=== PATIENT | male | born 1945 | race Two or more races ===

== ENCOUNTER → 2018-01-28 | Outpatient (CLI) | payer OTHER, MEDICARE | LOC: CIMAGING 16:21 | PROVIDERS: ATTEND Internal Medicine | DX: R05 Cough (principal); J44.9 Chronic obstructive pulmonary disease, unspecified | CPT/HCPCS: 71046-PO ==

== ENCOUNTER 2018-03-19 09:56 | Emergency (ER) | payer OTHER, MEDICARE ==
[2018-03-19 10:28] LABS: PLATELET COUNT 202 10^3/uL (150-400)
--- NOTE | 2018-03-19 10:33 | EDPHY ---
HPI/HX/ROS/PE/MDM Narrative: CHIEF COMPLAINT: Syncope, right flank injury HPI: The patient is a 72-year-old male with a history of Parkinson's disease and history of frequent syncopal episodes related to Parkinson's medication and low blood pressure. Last night he got up from sleep to use the restroom and shortly after urinating collapsed to the floor. He struck his right chest wall on a trash bin. He states that this type of a syncopal episode is very normal for him. His primary concern is the pain he is having in his right flank. He states that this pain is present only with certain motions. He denies abdominal pain or shortness of breath. He has been in his usual state of health. REVIEW OF SYSTEMS: Aside from elements discussed in the HPI, a comprehensive 10-point review of systems was reviewed and is negative. PMH: Includes Parkinson's disease, history of multiple syncopal episodes. Takes a daily aspirin, otherwise no anticoagulant use. 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 . PHYSICAL EXAM: General:Patient is alert, in no acute distress. ENT:Eyes are normal to inspection. ENT inspection normal. Neck: Normal inspection. Full range of motion. Respiratory:No respiratory distress. Breath sounds normal bilaterally. Tenderness to palpation is present on the right lower chest wall. No ecchymosis or deformity. Cardiovascular: Regular rate and rhythm. Strong peripheral pulses. Normal cap refill. Abdomen:The abdomen is nontender to palpation. There are no peritoneal signs. There are normal bowel sounds. Back: Normal to inspection. No tenderness to palpation. Skin: Normal color. No rash. Warm and dry. Extremities: Normal appearance. Full range of motion. Neuro: Oriented x3. Normal motor function. Normal sensory function. MDM: This patient presents with what sounds like a fairly routine syncopal event, complicated by rib pain secondary to three hairline rib fractures. There are no signs of PTx, liver injury, or other trauma. Patient is comfortable and would like to go home. There are no signs of ACS or arrhyhtmia. - Data Points Imaging Results: Imaging Impressions Ribs w/Chest X-Ray 03/19/18 10:14 Impression: Clear lungs. No acute rib fracture, pneumothorax or effusion. Chest CT 03/19/18 11:04 Impression: 1. Cortical irregularity of the right anterolateral 10th through 12th ribs, suspicious for fractures. Correlate with point tenderness. There is also subtle cortical irregularity lateral right third rib. 2. Pleural-based 4.3 mm right middle lobe nodule is likely benign. If patient is at increased risk, could consider 12 month follow-up. 3. Hypodense lesion in the right hepatic lobe measures 2.9 cm and probably represents a cyst. Findings and recommendations discussed with Alan Lopez MD at 1158 hour, 03/19/2018. Imaging: Discussed imaging studies w/ machine scallop cutter Radiologist, I viewed and interpreted images myself Laboratory Results: Laboratory Results 03/19/18 10:20 03/19/18 10:20 03/19/18 03/19/18 03/19/18 10:23 10:20 10:20 WBC 5.97 10^3/uL 10^3/uL (3.80-9.50) RBC 4.72 10^6/uL 10^6/uL (4.40-6.38) Hgb 14.2 g/dL g/dL (13.7-17.5) Hct 41.6 % % (40.0-51.0) MCV 88.1 fL fL (81.5-99.8) MCH 30.1 pg pg (27.9-34.1) MCHC 34.1 g/dL g/dL (32.4-36.7) RDW 12.4 % % (11.5-15.2) Plt Count 202 10^3/uL 10^3/uL (150-400) MPV 9.1 fL fL (8.7-11.7) Neut % (Auto) 67.8 % % (39.3-74.2) Lymph % (Auto) 20.9 % % (15.0-45.0) [place] % (Auto) 9.2 % % (4.5-13.0) Eos % (Auto) 1.2 % % (0.6-7.6) Baso % (Auto) 0.7 % % (0.3-1.7) Nucleat RBC Rel Count 0.0 % % (0.0-0.2) Absolute Neuts (auto) 4.05 10^3/uL 10^3/uL (1.70-6.50) Absolute Lymphs (auto) 1.25 10^3/uL 10^3/uL (1.00-3.00) Absolute Monos (auto) 0.55 10^3/uL 10^3/uL (0.30-0.80) Absolute Eos (auto) 0.07 10^3/uL 10^3/uL (0.03-0.40) Absolute Basos (auto) 0.04 10^3/uL 10^3/uL (0.02-0.10) Absolute Nucleated RBC 0.00 10^3/uL 10^3/uL (0-0.01) Immature Gran % 0.2 % % (0.0-1.1) Immature Gran # 0.01 10^3/uL 10^3/uL (0.00-0.10) Sodium 142 mEq/L mEq/L (135-145) Potassium 3.3 mEq/L mEq/L (3.3-5.0) Chloride 104 mEq/L mEq/L (97-110) Carbon Dioxide 28 mEq/l mEq/l (22-31) Anion Gap 10 mEq/L mEq/L (8-16) BUN 18 mg/dL mg/dL (7-23) Creatinine 0.9 mg/dL mg/dL (0.7-1.3) Estimated GFR > 60 Glucose 127 mg/dL H mg/dL (70-100) Calcium 9.0 mg/dL mg/dL (8.5-10.4) POC Troponin I 0.01 ng/mL ng/mL (0.00-0.08) Point of Care Test Results: Chemistry 03/19/18 10:23 POC Troponin I 0.01 ng/mL ng/mL (0.00-0.08) General Time Seen by Provider: 03/19/18 10:11 Initial Vital Signs: Initial Vital Signs Temperature (C) 36.8 C 03/19/18 10:02 Heart Rate 67 03/19/18 10:02 Respiratory Rate 18 03/19/18 10:02 Blood Pressure 120/75 03/19/18 10:02 O2 Sat (%) 98 03/19/18 10:02 O2 Delivery Mode Room Air Allergies/Adverse Reactions: phenytoin [From Dilantin] Allergy (Verified 03/19/18 10:00) Home Medications: Medication Instructions Recorded Crestor 03/19/18 Donepezil HCl 03/19/18 FLUDROCORTISONE ACETATE 03/19/18 Hydrocodone/APAP 5/325 [[place] 0.5 tab PO Q6H PRN #15 tab 03/19/18 5/325 (*)] Midodrine HCl 03/19/18 Modafinil 03/19/18 Rasagiline Mesylate 03/19/18 Rytary ER 61.25 mg-245 mg Cap 03/19/18 Departure - Departure Disposition: Home, Routine, Self-Care Clinical Impression: Syncope Qualifiers: Encounter type: initial encounter Ribs, multiple fractures Qualifiers: Encounter type: initial encounter Fracture type: closed Laterality: right Qualified Code(s): S22.41XA - Multiple fractures of ribs, right side, initial encounter for closed fracture Condition: Good Instructions: Rib Fracture (ED) Additional Instructions: Followup with your primary doctor within 72 hours for reevaluation. Use incentive spirometer as directed several times daily. Return to the emergency department for fever, worsening pain, shortness of breath or difficulty breathing, abdominal pain, blood in urine or other concerns. Referrals: Micah Vail MD [Primary Care Provider] - As per Instructions Prescriptions: Hydrocodone/APAP 5/325 [[place] 5/325 (*)] 0.5 tab PO Q6H PRN #15 tab PRN Reason: Pain, Severe
[2018-03-19] MEDS ORDERED: IOPAMIDOL (ISOVUE-300) 100 ML BTL ONE (11:15)
[2018-03-19 12:34] VITALS: BP 155/86
--- NOTE | 2018-03-19 14:46 | CPEKG ---
Test Reason : OPEN Blood Pressure : / mmHG Vent. Rate : 069 BPM Atrial Rate : 069 BPM P-R Int : 155 ms QRS Dur : 104 ms QT Int : 543 ms P-R-T Axes : 065 -26 233 degrees QTc Int : 582 ms Sinus rhythm Probable left atrial enlargement Abnormal R-wave progression, early transition LVH with secondary repolarization abnormality Prolonged QT interval Confirmed by Alan Lopez ([id number]) on 03/19/2018 2:45:48 PM Referred By: Confirmed By:Alan Lopez
== END 2018-03-19 12:34 | disposition home or self-care (01) ==
DX: S22.41XA Multiple fractures of ribs, right side, initial encounter for closed fracture (principal); R55 Syncope and collapse; G20 Parkinson's disease; W01.198A Fall on same level from slipping, tripping and stumbling with subsequent striking against other object, initial encounter
CPT/HCPCS: 71101; 71260; 93005; 99285; Q9967; 84484-PO

== ENCOUNTER 2018-08-02 15:33 | Inpatient (IN) | payer OTHER, MEDICARE ==
[2018-08-02] MEDS ORDERED: NS 1,000 ML IV ONE (15:54)
--- NOTE | 2018-08-02 15:54 | EDPHY ---
H & P Time Seen by Provider: 08/02/18 15:53 HPI/ROS: CHIEF COMPLAINT: Orthostatic hypotension HISTORY OF PRESENT ILLNESS: The patient is referred to the emergency department by his neurologist Dr. Charli Hernandez for admission. The patient is struggling with uncontrolled orthostatic hypotension. The patient has a history of Parkinson's disease. He is on a number of medications including midodrine and is still having significant orthostasis. The patient denies any fever, cough or congestion. He denies dysuria. He reports his symptoms of Parkinson's disease have been relatively stable. The patient's symptoms of orthostatic hypotension at become acutely worse over the past 2 weeks. The patient did increase his midodrine dose without improvement. The patient's family report that he requires near constant assistance with any positional changes. REVIEW OF SYSTEMS: A comprehensive 10 point review of systems is otherwise negative aside from elements mentioned in the history of present illness. Source: Patient Exam Limitations: No limitations - Medical/Surgical History Hx Asthma: No Hx Chronic Respiratory Disease: No Hx Diabetes: No Hx Cardiac Disease: No Hx Renal Disease: No Hx Cirrhosis: No Hx Alcoholism: No Hx HIV/AIDS: No Hx Splenectomy or Spleen Trauma: No Other PMH: orthostatic hypotension. hyperlipidemia. 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 - Social History Smoking Status: Never smoked - Physical Exam Exam: General Appearance: Alert, no distress Eyes: Pupils equal and round no pallor or injection ENT, Mouth: Dry mucous membranes Respiratory: There are no retractions, lungs are clear to auscultation Cardiovascular: Regular rate and rhythm Gastrointestinal: Abdomen is soft and nontender, no masses, bowel sounds normal Neurological: Alert and oriented x4, no gross motor deficits appreciated Skin: Warm and dry, no rashes Musculoskeletal: Neck is supple nontender Extremities: symmetrical, full range of motion Constitutional: Initial Vital Signs Temperature (C) 36.4 C 08/02/18 15:51 Heart Rate 91 08/02/18 15:51 Respiratory Rate 18 08/02/18 15:51 Blood Pressure 124/85 H 08/02/18 15:51 O2 Sat (%) 95 08/02/18 15:51 O2 Delivery Mode Room Air Allergies/Adverse Reactions: phenytoin [From Dilantin] Allergy (Verified 08/02/18 15:49) Home Medications: Medication Instructions Recorded Crestor 03/19/18 Donepezil HCl 03/19/18 FLUDROCORTISONE ACETATE 03/19/18 Hydrocodone/APAP 5/325 [[place] 0.5 tab PO Q6H PRN #15 tab 03/19/18 5/325 (*)] Midodrine HCl 03/19/18 Modafinil 03/19/18 Rasagiline Mesylate 03/19/18 Rytary ER 61.25 mg-245 mg Cap 03/19/18 Medical Decision Making - Diagnostics EKG Interpretation: EKG: Complete interpretation has been separately recorded in the [facility] archive. Summary impression: Sinus rhythm, LVH, nonspecific ST T wave changes noted ED Course/Re-evaluation: The patient presents to the ED with market increase in symptoms of orthostatic hypotension over the past 2 weeks. The patient is hemodynamically stable upon arrival. His EKG demonstrates a sinus rhythm. A patient's neurologist Dr. Hernandez has requested admission to the hospital. Consultation is made with Dr. Woodson from the hospitalist service at 4:30 p.m.. The patient will be admitted to the hospital for further evaluation and management of his symptomatic orthostasis. Differential Diagnosis: Differential diagnosis considered includes dehydration, anemia, worsening orthostatic hypotension, medication side effect, urinary tract infection - Data Points Laboratory Results: Laboratory Results 08/02/18 16:17 08/02/18 16:17 08/02/18 08/02/18 16:17 16:17 WBC 5.39 10^3/uL 10^3/uL (3.80-9.50) RBC 4.24 10^6/uL L 10^6/uL (4.40-6.38) Hgb 13.1 g/dL L g/dL (13.7-17.5) Hct 38.1 % L % (40.0-51.0) MCV 89.9 fL fL (81.5-99.8) MCH 30.9 pg pg (27.9-34.1) MCHC 34.4 g/dL g/dL (32.4-36.7) RDW 13.3 % % (11.5-15.2) Plt Count 195 10^3/uL 10^3/uL (150-400) MPV 9.3 fL fL (8.7-11.7) Neut % (Auto) 49.9 % % (39.3-74.2) Lymph % (Auto) 33.4 % % (15.0-45.0) [place] % (Auto) 13.0 % % (4.5-13.0) Eos % (Auto) 2.8 % % (0.6-7.6) Baso % (Auto) 0.7 % % (0.3-1.7) Nucleat RBC Rel Count 0.0 % % (0.0-0.2) Absolute Neuts (auto) 2.69 10^3/uL 10^3/uL (1.70-6.50) Absolute Lymphs (auto) 1.80 10^3/uL 10^3/uL (1.00-3.00) Absolute Monos (auto) 0.70 10^3/uL 10^3/uL (0.30-0.80) Absolute Eos (auto) 0.15 10^3/uL 10^3/uL (0.03-0.40) Absolute Basos (auto) 0.04 10^3/uL 10^3/uL (0.02-0.10) Absolute Nucleated RBC 0.00 10^3/uL 10^3/uL (0-0.01) Immature Gran % 0.2 % % (0.0-1.1) Immature Gran # 0.01 10^3/uL 10^3/uL (0.00-0.10) Sodium 141 mEq/L mEq/L (135-145) Potassium 4.1 mEq/L mEq/L (3.5-5.2) Chloride 106 mEq/L mEq/L (97-110) Carbon Dioxide 29 mEq/l mEq/l (22-31) Anion Gap 6 mEq/L mEq/L (6-14) BUN 20 mg/dL mg/dL (7-23) Creatinine 0.9 mg/dL mg/dL (0.7-1.3) Estimated GFR > 60 Glucose 94 mg/dL mg/dL (70-100) Calcium 9.2 mg/dL mg/dL (8.5-10.4) Medications Given: Discontinued Medications Sodium Chloride (Ns) 1,000 mls @ 0 mls/hr IV EDNOW ONE; Wide Open PRN Reason: Protocol Stop: 08/02/18 15:55 Last Admin: 08/02/18 16:40 Dose: 1,000 mls Departure - Departure Disposition: [facility] Inpatient Acute Clinical Impression: Parkinsons disease, Orthostatic hypotension Condition: Fair
[2018-08-02 16:27] LABS: PLATELET COUNT 195 10^3/uL (150-400)
[2018-08-02] MEDS ORDERED: ZOLPIDEM TARTRATE 5 MG TAB PO PRN (17:42)
[2018-08-02] MEDS ORDERED: ONDANSETRON 4 MG/2 ML VIAL IVP PRN (17:42)
[2018-08-02] MEDS ORDERED: ACETAMINOPHEN 325 MG TAB PO PRN (17:42)
[2018-08-02] MEDS ORDERED: NS 1,000 ML IV SCH (17:45)
--- NOTE | 2018-08-02 17:50 | PDGENHP ---
History and Physical History and Physical: CC: Worsening orthostasis HISTORY:This patient has chronic Parkinsons disease and chronic orthostatic hypotension issues related to that. Talking to him and his family, it is hard to determine the pace of change but they describe that over the past two weeks he has gone from active with walking and being able to stand from prolonged times to requent collapses and a syncope in the last two weeks. Notably however , he reports seeing a specialist in [place] regarding his orthostasis a month ago in order to try to determine why it is getting worse. He does describe some episodes of collapsing in the past, and states he had a tilt table test 6 yrs ago where his BP dropped 65 points. He denies any injury from falls. He does not note any new focal weakness, nor any dramatic change in his chronic generallized weakness/deconditioning. He has tried increasing midodrine from 5 mg bid to 10 mg tid with no benefit. He has had no other recent med changes. He does not use alcohol. He denies any chest pain or palpitations No headache no other new focal neurologic sxs no fever no nausea, vomiting or decrease in po intake no noted wt loss ROS: A comprehensive 10 system review revealed no other significant findings PAST MEDICAL HISTORY: Advanced Parkinson's disease Severe orthostasis due to Parkinson's disease Neurogenic bladder to Parkinson's disease Vocal cord dysfunction due to Parkinson's High fall risk Cognitive dysfunction FAMILY MEDICAL HISTORY: Nothing notable per the family SOCIAL HISTORY: [place] [place] No tobacco MEDICATIONS: The patients list has been reconciled by our clinical pharmacist in the EMR. I have reviewed the list and ordered appropriate medicines. PHYSICAL EXAMINATION: Vital Signs: Quite hypertensive here in the ER otherwise stable Headliner Installer: Examination: General/Neurologic: alert, oriented, good overall mentation for general history and exam but some mild memory issue noted, normal speech/language, normal oim consultant, no focal weakness, mild tremor, fairly flat facial expression Skin: warm, dry, good color, no rash HEENT: normal Neck: no mass or jvd Resps: relaxed Lungs: clear breath sounds Heart: regular, 1/ systolic murmur Abdomen: soft, nondistended, nontender, +BS, no mass Upper Extremities: normal Lower Extremities: no edema, warm No Bleeding or bruising IV site: looks normal LABORATORY DATA: Unremarkable CBC, basic met panel, UA 12 LEAD EKG: I reviewed tracing from study done in the ER today, sinus rhythm in normal range , with LVH and repolarization abnormality associated with that, no other acute or concerning findings ASSESSMENT: * Worsening orthostasis with recent syncopal spell and several episodes of collapse, in the setting of severe chronic Parkinson's a related orthostasis * Syncope * Advanced Parkinson's disease * Cognitive disorder related to Parkinson's disease * Neurogenic bladder requiring intermittent bladder catheterization at home The cause for his worsening troubles is unclear. It could be that this is worsening Parkinson's autonomic disorder. Would also be concerned about a cardiac dysfunction including either arrhythmia or structural, pulmonary hypertension from either sleep apnea or other causes, carotid or other cerebral vascular disease, hypothyroidism, adrenal dysfunction, or other non neurologic abnormalities. Additionally it might be easy for a new neurologic abnormality to be masked by his Parkinson's disease though by his symptoms and exam nothing is immediately obvious. PLANS: * Inpatient admission due to unsafe condition at home, will need at least 48 hr to problem solving trying make some progress in managing this, may need sniff or wheelchair with home care * Will hydrate him with IV fluids to see if this makes any difference though there is no obvious dehydration * Cortrosyn stim test * Check TSH * Urine drug screen to check for marijuana products (I did not discuss this with the patient at the time as his family was at the bedside with him) * Echocardiogram * Carotid Doppler studies * Neurology consult to look for any new neurologic issues or any changes in how his Parkinson's could be managed * Fall risk precautions which I have discussed with the nursing staff in detail in place specific orders for * PT and OT consult I have reviewed the patient's case in detail with Dr. Aquilino Brennan I have reviewed the patient's past medical records as part of this assessment, including previous outpatient clinical records from primary care and Neurology clinics
--- NOTE | 2018-08-02 20:14 | CPEKG ---
Test Reason : OPEN Blood Pressure : / mmHG Vent. Rate : 080 BPM Atrial Rate : 080 BPM P-R Int : 153 ms QRS Dur : 099 ms QT Int : 457 ms P-R-T Axes : 054 -25 -66 degrees QTc Int : 528 ms Sinus rhythm LVH with secondary repolarization abnormality Prolonged QT interval Confirmed by Brenden Brennan ([id number]) on 08/02/2018 8:13:41 PM Referred By: Confirmed By:Brenden Brennan
[2018-08-02] MEDS ORDERED: DONEPEZIL HCL 5 MG TAB PO SCH (21:00)
[2018-08-02] MEDS: MELATONIN 3 MG TAB PO SCH (21:26)
[2018-08-02] MEDS: FLUDROCORTISONE ACETATE 0.1 MG TAB PO SCH (21:36)
[2018-08-02] MEDS: GLYCOPYRROLATE 1 MG TAB PO SCH (21:36)
[2018-08-02] MEDS: SODIUM CHLORIDE 1,000 MG TAB PO SCH (21:36)
[2018-08-02] MEDS: LEVODOPA PO SCH (21:40)
[2018-08-02] MEDS: CARBIDOPA PO SCH (21:40)
[2018-08-03] MEDS ORDERED: COSYNTROPIN 0.25 MG/2 ML SYRINGE IVP ONE (06:00)
[2018-08-03] MEDS: ENOXAPARIN 40 MG/0.4 ML SYR SC SCH (09:37)
[2018-08-03] MEDS: FLUDROCORTISONE ACETATE 0.1 MG TAB PO SCH ×2 (09:37→22:01)
[2018-08-03] MEDS: SODIUM CHLORIDE 1,000 MG TAB PO SCH ×2 (09:38→22:01)
[2018-08-03] MEDS: MIDODRINE HCL 5 MG TAB PO SCH ×3 (09:38→16:54)
--- NOTE | 2018-08-03 09:57 | PDMN ---
Medical Necessity Medical [place] [facility] [place] A-1day: 72 yo presents w/ worsening orthostasis with recent syncopal spell and several episodes of collapse, unknown etiology - consider cardiac, pulm HTN, hypothyroid, adrenal dysfx, carotid or cerebral vasc disease, or new neuro issue masked by Parkinson's. Inpatient admission due to unsafe condition at home, will need at least 48 hr to problem solving trying make some progress in managing this. Monitor and tx w hydration, serial labs, echo, carotid Doppler studies, neuro consult, PT/OT consults. Advanced Parkinson's w/ severe orthostasis, neurogenic bladder, vocal cord dysfuntion, high fall risk, cognitive dysfunction.
[2018-08-03] MEDS: GLYCOPYRROLATE 1 MG TAB PO SCH ×2 (09:59→22:01)
[2018-08-03] MEDS: LEVODOPA PO SCH ×2 (10:00→22:33)
[2018-08-03] MEDS: ROSUVASTATIN CALCIUM 20 MG TAB PO SCH ×2 (10:00→22:01)
[2018-08-03] MEDS: CARBIDOPA PO SCH ×2 (10:00→22:33)
[2018-08-03] MEDS: Rasagiline Mesylate [Azilect] 1 MG PO SCH (10:00)
--- NOTE | 2018-08-03 10:53 | GCON ---
NEUROLOGY CONSULT REFERRING PHYSICIAN: Dr. Woodson CHIEF COMPLAINT: Parkinson disease and autonomic dysfunction. OUTPATIENT NEUROLOGIST: Dr. Charli Hernandez. 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 He has a longstanding history of Parkinson disease with autonomic dysfunction, including orthostasis. It has been managed by Cezar mosher, and he was fairly functional, with some episodes of lightheadedness, but able to ambulate and socialize, etc. The patient moved here from [place] to [place] just 3 weeks ago. Then, in the last 2 weeks, he has had increased orthostasis with becoming profoundly lightheaded and tremulous from going from a sitting to standing position, to the point where he is unable to ambulate normally and be independent at home with his . They called Dr. Hernandez, who sent him to the emergency department. Dr. Hernandez was recommending discontinuation of Aricept and hydration to stabilize the patient. He has received IV fluids and is improving now. There were no other changes in his medications or general medical condition prior to the exacerbation of his orthostasis. Six days ago, his midodrine was increased from 5 to 10 mg t.i.d., but then he stopped his midodrine completely. REVIEW OF SYSTEMS: Ten-point review of systems was done, only pertinent to the HPI. For past medical history, social history, family history, home medications, allergies, see Dr. Woodson's H and P. PHYSICAL EXAM: VITAL SIGNS: Blood pressure 163/88, temperature 36.6, respirations 14-18, heart rate 70s. GENERAL: The patient is awake and alert, in no acute distress. NEUROLOGIC: On higher mental function, he has no overt cognitive dysfunction and has no aphasia. Cranial nerve exam: Facial expression is minimally suppressed. Extraocular movements are full. On motor exam, there were no convulsive movements noted. He was having orthostatic blood pressures taken, and therefore, exam is limited. No obvious tremor at rest. IMPRESSION/PLAN: 1. Parkinson disease. 2. Autonomic dysfunction secondary to Parkinson disease. Overall, I suspect the patient's exacerbation of orthostatic symptoms is related to dehydration from him moving to [place] from [place]. His also endorses that he was not drinking enough fluids, concurrently with his decline. Going forward, I recommend we discontinue Aricept. We can reintroduce midodrine at 5 mg 3 times daily. We will not change any other of his Parkinson's medications now. Finally, continuation of IV hydration during his workup is recommended. Therapies are working with him now for discharge planning for safety. He may need to go to a group home facility versus inpatient rehab versus home with home care depending on how he does here over the next day or 2. Finally, he does have an outpatient consultation with a movement subspecialist and can get further recommendations for his autonomic dysfunction at that time as an outpatient. I have also given him the name of an autonomic neurologic subspecialist as well that he could follow up with. No further recommendations. Dr. Hernandez and I have communicated about the patient as well. We will continue to follow as needed. Please do not hesitate to call if there are any questions or changes in his neurologic status. Seventy total minutes of floor time today reviewing outpatient records, inpatient records, over 50% in direct counseling and coordination of care. /[id number]/MODL MTDD
--- NOTE | 2018-08-03 11:59 | ECHO ---
[email or web address] [address] [address] Main: [phone] Fax: Transthoracic Echocardiogram Name: MANINDER BLANCA MR#: [id number] Study Date: 08/03/2018 Study Time: 07:31 AM Date of : 1945 Age: 72 year(s) Height: 162.6 cm (64 in.) Weight: 58.97 kg (130 lb.) BSA: 1.63 m2 Gender: Male Examination: Echo Indication: orthostasis and syncope Image Quality: Adequate Contrast: Requested by: Miguel Woodson BP: / Heart Rate: Rhythm: Indication: orthostasis and syncope Procedure Staff Clinical Trial Educator: Patricia Willson [facility] Reading Physician: Magda Bae MD Requesting Provider: Conclusions: Normal size left ventricle. Mild concentric LV hypertrophy. Normal global systolic LV function. EF is 60 %. No regional wall motion abnormality. Grade 1 diastolic dysfunction (abnormal relaxation). Normal size right ventricle. Normal RV function. The left atrium is moderately dilated. Posterior mitral valve leaflet prolapse. There is moderate mitral valve regurgitation present with multiple jets. Mild aortic valve regurgitation is present. No aortic valve stenosis is present. Trivial pericardial effusion. There is no previous echocardiogram for comparison. Measurements: Chambers Valvular Assessment AV/MV Valvular Assessment TV/PV Normal Normal Normal Name Value Range Name Value Range Name Value Range Ao Arabella (2D): 3.2 cm (1.4 cm-2.6 AV Vmax: 1.71 m/s (1 m/s-1.7 PV Vmax: 0.80 m/s (0.6 m/s-0.9 cm) m/s) m/s) IVSd (2D): 1.3 cm (0.6 cm-1.1 AV maxP mmHg ( - ) PV PGmax: 3 mmHg ( - ) cm) AV meanP mmHg ( - ) LVDd (2D): 4.5 cm (4.2 cm-5.9 LVOT Vmax: 0.90 m/s (0.7 m/s-1.1 cm) m/s) LVDs (2D): 3.0 cm (2.1 cm-4 CONCEPCIÓN (Vmax): 1.7 cm2 ( - ) cm) CONCEPCIÓN (VTI): 1.8 cm ( - ) LVPWd (2D): 1.2 cm (0.6 cm-1 MV E Vmax: 0.61 m/s ( - ) cm) MV A Vmax: 1.03 m/s ( - ) Patient: MANINDER BLANCA Study Date: 08/03/2018 Page 1 of 2 07:31 AM LVOTd 2.0 cm 2.0 cm mm MV E/A: 0.59 ( - ) LVEF (BP): 60 % (>=55 %) MV PHT: 0.102 s ( - ) RVDd(2D): 3.1 cm (1.9 cm-3.8 MVA (PHT): 2.2 s ( - ) cmmm) Continued Measurements: Chambers Valvular Assessment AV/MV Name Value Name Value LADs: 3.8 cm MV DecTime: 317 m/s LADs Lon.5 cm MV E/E' Septal: 12.80 LA Area: 22.7 cm2 MV E/E' Lateral: 11.40 LA Volume: 75 ml LA Volume Index: 46.0 ml/m2 RA Area: 14.4 cm2 Additional Vessels Name Value Ao Ascendin.0 cm Inferior Vena Cava: 1.6 cm Findings: Left Ventricle: Normal size left ventricle. Mild concentric LV hypertrophy. Normal global systolic LV function. EF is 60 %. No regional wall motion abnormality. Grade 1 diastolic dysfunction (abnormal relaxation). Right Ventricle: Normal size right ventricle. Normal RV function. Left Atrium: The left atrium is moderately dilated. Right Atrium: The right atrium is normal in size. Mitral Valve: No mitral stenosis is present. Posterior mitral valve leaflet prolapse. There is moderate mitral valve regurgitation present with multiple jets. Aortic Valve: The aortic valve is tri-leaflet. Aortic sclerosis is present. Mild aortic valve regurgitation is present. No aortic valve stenosis is present. Mild to moderate aortic valve leaflet calcification. Tricuspid Valve: The tricuspid valve is normal in appearance and function. Trivial tricuspid valve regurgitation. Pulmonic Valve: The pulmonic valve is normal in appearance and function. Mild pulmonic valve regurgitation is noted. Aorta: The aorta is normal. Normal size aortic root measuring 3.2 cm. Normal size ascending aorta measuring 3.0 cm. IVC: The IVC is normal sized. Pericardium: Trivial pericardial effusion. No pleural effusion. (No Signature Object) Patient: MANINDER BLANCA Study Date: 08/03/2018 Page 2 of 2 07:31 AM [id number]
--- NOTE | 2018-08-03 15:37 | ASMTCMCOM ---
CM Note CM Note Notes: Pt w adv Parkinson's in with orthostatic hypertension, mobility affected and he is unable to ambulate. Neurology consulting. Pt resides with spouse. OT/PT rec inpatient rehab, inpatient rehab consult order is in. CM to follow pt progress for d/c planning. Date Signed: 08/03/2018 03:37 PM Electronically Signed By:KAILEY Shaffer
--- NOTE | 2018-08-03 19:11 | HOSPPROG ---
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 Weak. His is at her wits end, saw a psychiatist herself because she can't deal with her husbands acute decline. Objective: Vital Signs Temp Pulse Resp BP Pulse Ox 36.4 C 78 16 192/103 H 97 08/03/18 16:21 08/03/18 16:34 08/03/18 16:21 08/03/18 16:34 08/03/18 16:21 Laboratory Results 08/03/18 06:35 08/02/18 08/03/18 08/04/18 05:59 05:59 05:59 Intake Total 1380 Output Total 1375 450 Balance 5 -450 EKG viewed, my personal interpretation is - TWI inferior laterally carotid US - negative - Physical Exam Constitutional: no apparent distress, appears nourished, not in pain Cardiovascular: regular rate and rhythym, no murmur, rub, or gallop Respiratory: no respiratory distress, no rales or rhonchi, clear to auscultation Gastrointestinal: normoactive bowel sounds, soft, non-tender abdomen, no palpable masses Skin: no rashes or abrasions, no fluctuance, no induration Neurologic: AAOx3, sensation intact bilaterally Psychiatric: interacting appropriately, not anxious, not encephalopathic, thought process linear ICD10 Worksheet Patient Problems: Problems Problem Status Onset Parkinsons disease Acute Orthostatic hypotension Acute
[2018-08-03] MEDS: MELATONIN 3 MG TAB PO SCH (22:01)
[2018-08-04] MEDS: LEVODOPA PO SCH (08:48)
[2018-08-04] MEDS: CARBIDOPA PO SCH (08:48)
[2018-08-04] MEDS: FLUDROCORTISONE ACETATE 0.1 MG TAB PO SCH (08:49)
[2018-08-04] MEDS: SODIUM CHLORIDE 1,000 MG TAB PO SCH (08:49)
[2018-08-04] MEDS: MIDODRINE HCL 5 MG TAB PO SCH ×2 (08:50→12:19)
[2018-08-04] MEDS: ENOXAPARIN 40 MG/0.4 ML SYR SC SCH (08:51)
[2018-08-04] MEDS: Rasagiline Mesylate [Azilect] 1 MG PO SCH (08:53)
[2018-08-04] MEDS: GLYCOPYRROLATE 1 MG TAB PO SCH (09:04)
--- NOTE | 2018-08-04 09:39 | NEUROPROG ---
Assessment: 1. Parkinson's disease 2. Parkinson's disease related dysautonomia The patient is had no new symptoms. I coordinated care with Hospital Medicine, we will provide more intravenous fluids. We will keep the head of the bed elevated to avoid supine hypertension during sleep. Midodrine is prescribed 5 mg three times daily and can be adjusted accordingly to avoid supine hypertension. Aricept discontinued. He will continues his Parkinson's medication. He has an outpatient consultation with a movement disorder specialist coming up. He will keep this appointment to help with ongoing outpatient care. No further recommendations. We will continue to follow as needed. Please do not hesitate to call for any questions or changes in neurologic status with this patient. Subjective: No new symptoms Objective: Vital Signs Temp Pulse Resp BP Pulse Ox 36.5 C 62 18 119/69 96 08/04/18 08:17 08/04/18 08:17 08/04/18 08:17 08/04/18 09:16 08/04/18 08:17 Laboratory Results 08/03/18 06:35 08/03/18 08/04/18 08/05/18 05:59 05:59 05:59 Intake Total 1380 100 Output Total 1375 850 Balance 5 -750 Awake alert Lucid No overt pill rolling tremor on exam 35 total minutes floor time; over 50% counseling and coordination of care. Allergies/Adverse Reactions: phenytoin [From Dilantin] Allergy (Verified 08/02/18 15:49)
[2018-08-04] MEDS ORDERED: NS 1,000 ML IV SCH (09:45)
--- NOTE | 2018-08-04 10:00 | ASMTCMCOM ---
CM Note CM Note Notes: CM met w/ pt, pts Dawna and pts son Boris for dispo planning. Pt and family would like a referral SNF as a back up plan. [facility]. CM left a msg for Miriam Parnell. CM provided family w/ Miriam's phone number. Therapies will continue to work w/ pt. CM to follow. Plan: Inpatient rehab vs SNF Date Signed: 08/04/2018 10:00 AM Electronically Signed By:KHUSHBU Branch
--- NOTE | 2018-08-04 11:55 | ASMTDCNOTE ---
Case Management Discharge Discharge Order Complete? Answers: Yes Patient to Obtain Answers: Other Notes: [facility] Inpatient Rehab Medications Transportation Arranged Answers: Other Notes: [place] w/c transportation Transport will Pick (Date 08/04/2018 03:00 PM & Time) EMTALA Complete Answers: No Case Management Transport Answers: No Form Complete Faxed Final Orders Answers: Yes Agency/Facility Transfer Answers: Yes Report Printed & Faxed to Receiving Agency Family Notified Answers: Yes Discharge Comments Notes: [facility] Inpatient Rehab has accepted pt with an admission for today. CM arranged transportation w/ [place]. Family will pay for transport. RUTH ANN Redding will call to give report. CM notified pts of the acceptance and d/c time. CM available for changes. Plan: [facility] Inpatient Rehab Date Signed: 08/04/2018 11:55 AM Electronically Signed By:KHUSHBU Branch
--- NOTE | 2018-08-04 11:57 | ASDISCHSUM ---
Discharge Information Plan Status:Inpatient Rehab Medically Cleared to Leave: Discharge Date: D/C Disposition: [facility] D/C Disposition:[facility] Projected Discharge Date:08/05/2018 11:00 AM Transportation at D/C: Discharge Delay Reason: Follow-Up Date:08/05/2018 11:00 AM Discharge Slot: Final Diagnosis: Placement Information Referral Type:*Assisted/SNF Referral ID:[id number] Provider Name: Address 1: Phone Number: Address 2: Fax Number: City: Selection Factors: State: Referral Type:[facility] Referral ID:[id number] Provider Name:[facility]patient [facility] Address 1:[address] Phone Number: Address 2: Fax Number: [facility]:[place] Selection Factors: State:[place] Patient Contact Information Contact Name:ROHITH Relationship: Address:[address] Work Phone: City:[place] Alternate Phone: [facility] [[email or web address] Code:[place] [address] Email: Financial Information Financial Class:Medicare Primary Plan Desc:MEDICARE INPATIENT Primary Plan Number:[id number] Secondary Plan Desc:[employer]/MDR SUPPLEMENT Secondary Plan Number:[id number] Assessment Information [facility] CM Progress Note CM Note CM Note Notes: Pt w adv Parkinson's in with orthostatic hypertension, mobility affected and he is unable to ambulate. Neurology consulting. Pt resides with spouse. OT/PT rec inpatient rehab, inpatient rehab consult order is in. CM to follow pt progress for d/c planning. Date Signed: 08/03/2018 03:37 PM Electronically Signed By:KAILEY Shaffer LACE LACE Length of stay for Answers: 2 days current admission Acuity / Level of Answers: Yes Care: Did the patient have an inpatient admission? Comorbidities - select Answers: Other Notes: Parkinson's all that apply disease; HLD; Seizure disorder # of Emergency department Answers: 1-2 visits in the last 6 months Score: 7 Date Signed: 08/04/2018 11:56 AM Electronically Signed By:KHUSHBU Branch [facility] CM Progress Note CM Note CM Note Notes: CM met w/ pt, pts Dawna and pts son Boris for dispo planning. Pt and family would like a referral SNF as a back up plan. [facility]. CM left a msg for Miriam Parnell. CM provided family w/ Miriam's phone number. Therapies will continue to work w/ pt. CM to follow. Plan: Inpatient rehab vs SNF Date Signed: 08/04/2018 10:00 AM Electronically Signed By:KHUSHBU Branch Case Management Discharge Plan Note Case Management Discharge Discharge Order Complete? Answers: Yes Patient to Obtain Answers: Other Notes: [facility] Inpatient Rehab Medications Transportation Arranged Answers: Other Notes: [place] w/c transportation Transport will Pick (Date 08/04/2018 03:00 PM & Time) KUMAR Complete Answers: No Case Management Transport Answers: No Form Complete Faxed Final Orders Answers: Yes Agency/Facility Transfer Answers: Yes Report Printed & Faxed to Receiving Agency Family Notified Answers: Yes Discharge Comments Notes: [facility] Inpatient Rehab has accepted pt with an admission for today. CM arranged transportation w/ [place]. Family will pay for transport. RUTH ANN Redding will call to give report. CM notified pts of the acceptance and d/c time. CM available for changes. Plan: [facility] Inpatient Rehab Date Signed: 08/04/2018 11:55 AM Electronically Signed By:KHUSHBU Branch Intervention Information
[2018-08-04 12:18] VITALS: BP 119/68
--- NOTE | 2018-08-04 14:28 | PDIAF ---
- Diagnosis Diagnosis: parkinsons with acute weakness due to dehydration Code Status: Full Code - Medication Management Discharge Medications: electronically signed and located in the Home Medication List. - Orders Services needed: Physical Therapy, Occupational Therapy Diet Recommendation: no restrictions on diet - Follow Up Care Current Providers and Referrals: Micah Vail MD [Primary Care Provider] - As per Instructions
--- NOTE | 2018-08-04 18:15 | GDS ---
DISCHARGE DIAGNOSES: 1. Acute weakness due to dehydration from recent move to altitude. 2. Chronic orthostatic hypotension due to autonomic dysfunction. 3. Parkinson disease. 4. Recurrent syncope due to orthostasis. 5. Dementia due to Parkinson's. 6. Neurogenic bladder. 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 He and his recently moved from [place], [place] to [place] and he did well for the 1st wee k and then suddenly became acutely weak and unable to function in the home environment and his letty mariano no longer care for him. He was seen by Neurology, they thought dehydration due to the recent mo ve to altitude caused worsening weakness and recommended rehabilitation. He was hydrated with IV flu ids. He does have chronic orthostatic hypotension which worsened with the dehydration. His blood pr essure was noted to be very labile here. His midodrine had recently been increased by Neurology 10 mg three times daily but this caused severe elevated blood pressure when he was supine. We decreased h is midodrine back down to 5 mg p.o. three times daily and seems to be a better balancing point. Neur ology also recommended discontinuing Aricept. They thought the anticholinergic affects may be worsen ing his overall condition. He was transferred to acute inpatient rehabilitation for further care. DISCHARGE MEDICATIONS: Please see computerized record for full detailed list. New medications: 1. Midodrine changed from 10 mg p.o. three times daily down to 5 mg p.o. three times daily. 2. Aricept discontinued. 3. The remainder of his medications continued as they were prior to admission including his Florinef and salt tabs. 4. Greater than 30 minutes' time was spent arranging this discharge. Patient seen and examined by me on the day of discharge. /[id number]/MODL
== END 2018-08-04 15:06 | DRG 641 ==
LOC: F3N 17:14 → F3E 08-03 16:09
PROVIDERS: ADMIT Internal Medicine; ATTEND Internal Medicine
DX: E86.0 Dehydration (principal); I95.1 Orthostatic hypotension; G31.83 Neurocognitive disorder with Lewy bodies; F02.80 Dementia in other diseases classified elsewhere, unspecified severity, without behavioral disturbance, psychotic disturbance, mood disturbance, and anxiety; E78.5 Hyperlipidemia, unspecified; N31.9 Neuromuscular dysfunction of bladder, unspecified; Z91.81 History of falling; Z87.820 Personal history of traumatic brain injury; G40.802 Other epilepsy, not intractable, without status epilepticus
CPT/HCPCS: 80307; 92523-GN; 97110-GP; 97116-GP; 97162-GP; 97166-GO; 97530-GP; 97535-GO; G0480; G8978-GP-CK; G8979-GP-CJ; G8980-GP-CJ; J0834; J1650

== ENCOUNTER 2018-08-04 14:25 | Inpatient (IN) | payer OTHER, MEDICARE ==
[2018-08-04] MEDS ORDERED: SENNOSIDES 1 TAB PO PRN (16:53)
[2018-08-04] MEDS ORDERED: BISACODYL 10 MG SUPP PR PRN (16:53)
--- NOTE | 2018-08-04 18:46 | GHP ---
POST ADMISSION PHYSICIAN EVALUATION AND REHABILITATION TREATMENT PLAN DATE OF ADMISSION: 08/04/2018 DATE OF EVALUATION: 08/04/2018 TIME OF EVALUATION: 1640 REFERRING FACILITY: [facility] REFERRING PHYSICIAN: Maryse Toledo MD REHABILITATION DIAGNOSIS: Parkinson disease with orthostatic hypotension. ETIOLOGIC DIAGNOSIS: Parkinsonism. IMPAIRMENT GROUP: 3.2. DATE OF ONSET: 08/02/2018. HISTORY OF PRESENT ILLNESS: This patient has recently relocated to [place] from [place], [place]. He has a 2-week history of decreased activity tolerance due to orthostatic hypotension interfering with his functional mobility. He was admitted for treatment of the orthostatic hypotension. Evaluation in the hospital included an EKG, which showed LVH and a prolonged QT interval. He was otherwise in normal sinus rhythm. He had an echocardiogram which showed normal size left ventricle, mild concentric left ventricular hypertrophy, normal global systolic LV function with an EF of 60%, no regional wall motion abnormality, grade 1 diastolic dysfunction, normal size right ventricle and normal RV function moderately dilated left atrium. There was moderate mitral valve regurgitation and mild aortic valve regurgitation. He was found to be profoundly orthostatic. On 08/03/2018, his blood pressure dropped from 138/79 standing to 89/85 supine, and on 08/04/2018, his blood pressure dropped from 151 /82 supine to 80/55, standing. Otherwise, he has frequently been hypertensive when his vitals are checked. His systolic blood pressure has ranged from 119- 207 and his diastolic from 68-103. He had IV hydration with a liter of normal saline on 08/03/2018. He had been taking donepezil, which was discontinued. He was otherwise stable and appropriate for transfer to inpatient rehabilitation. LABORATORY STUDIES: Showed mild anemia with a hemoglobin of 13.1 and hematocrit of 38.1. Serum chemistries were overall within normal limits. Troponin was negative. TSH was normal at 2.8. He had a normal cosyntropin stimulation test with his morning cortisol going from 4.6 pre-stimulation to 23.2 after stimulation. He had a urine drug screen which was negative for any substances of abuse. He was continued on midodrine as well as fludrocortisone and he received salt tablets. PRECAUTIONS: He is a fall risk. ACTIVE COMORBIDITIES: He has no active tier 1, tier 2 or tier 3 comorbidities. PAST MEDICAL HISTORY: 1. Parkinson disease. 2. Dysautonomia with orthostatic hypotension. 3. Neurogenic bladder. He denies urinary retention, but has urinary frequency. 4. Dyslipidemia. 5. 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 6. Vocal cord dysfunction due to Parkinson's. 7. Cognitive dysfunction. 8. Cardiac chronotropic dysfunction. PAST SURGICAL HISTORY: He has not had surgeries. PRE-HOSPITAL MEDICATIONS: 1. Rosuvastatin 20 mg p.o. at bedtime. 2. Donepezil. 3. Fludrocortisone 0.1 mg p.o. b.i.d. 4. Glycopyrrolate 1 mg p.o. b.i.d. 5. Hydrocodone/acetaminophen 5/325 half a tab p.o. q.6 hours p.r.n. This was a prescription from February, so he may not have been taking it. 6. Midodrine 5 mg p.o. t.i.d. He had increased it to 10 mg to attempt to treat his orthostatic hypotension. 7. Modafinil which he discontinued months ago as he did not feel he needed it. 8. Rasagiline 1 mg p.o. daily. 9. Rytary ER 61.25 mg/245 mg t.i.d. ADMISSION MEDICATIONS: 1. Rytary ER 61.25/245 mg 1 p.o. t.i.d. 2. Fludrocortisone 0.1 mg p.o. b.i.d. 3. Glycopyrrolate 1 mg p.o. b.i.d. 4. Midodrine 5 mg p.o. t.i.d. at 0800, 1200, and 1600. 5. Rasagiline 1 mg p.o. daily. 6. Rosuvastatin 20 mg p.o. q.h.s. 7. Sodium chloride 1000 mg p.o. b.i.d. ALLERGIES: There is an allergy listed to phenytoin. PSYCHOSOCIAL HISTORY: He is . He lives with his . He has a son in [place] and another son in [place], [place]. He has vacationed for many years at a cabin in the [facility] [place] [address], but he currently is purchasing a condominium in [place], and meanwhile staying with his in an Airbnb. 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 FAMILY HISTORY: Noncontributory. REVIEW OF SYSTEMS: He is feeling a little stronger. He reports he has been sleeping more over recent months, especially with progression of his disease. He does not snore. He typically feels rested when he awakens, though there might be some period of time before he is fully alert. He has much reduced his exercise due to circumstances of moving from [place] to [place]. He is not in pain. He has no cough or dyspnea. There is no chest pain or palpitations. There is no nausea, vomiting, constipation, or diarrhea. He has had a reduced appetite and had lost several pounds through his recent hospitalization. He has urinary frequency but denies urinary incontinence. He denies joint pain or joint swelling. He denies skin rash or skin breakdown. He is in good spirits. Otherwise, a 10-point review of systems is negative. PHYSICAL EXAM: VITALS: Blood pressure is 165/93, heart rate is 73, respiratory rate is 18, oxygen saturation is 95% on room air. Temperature is 36.5 degrees centigrade. His weight is 62.5 kg for a body mass index of 23.7. GENERAL: This is a well, well-nourished, well-developed, elderly man sitting in a wheelchair, cooperative, and in no acute distress. HEENT: Extraocular movements are intact. Pupils are equal, round, reactive to light. Mucous membranes are moist. Dentition is in good condition. He has an uncrowded airway, Mallampati class 2. NECK: Supple. HEART: There is a regular rate and rhythm. There is a 2/6 systolic ejection murmur. There is no edema and no JVD. LUNGS: Clear to auscultation bilaterally. ABDOMEN: Soft, nontender, nondistended with normoactive bowel sounds and no hepatosplenomegaly. EXTREMITIES: There is no cyanosis, clubbing, or edema. Radial and dorsalis pedis pulses are 2+ bilaterally. NEUROLOGIC: He is alert and oriented x3. Cranial nerves 2-12 are grossly intact. There is no focal weakness. Sensation is intact to light touch, though he reports a much reduced sense of smell. He has bradykinesia with a much reduced blink rate and masked facies. He has hypophonia and dysprosody. He has cogwheel rigidity bilaterally to the upper extremities. He is able to arise from seated to standing with contact guard assist at the most. He has a resting tremor. SKIN: There is no skin breakdown noted. CURRENT LEVEL OF FUNCTION: Per the preadmission screen, he required standby assist for eating. There was no dysphagia noted. Grooming was done with standby assist and voice cues. Dressing and toileting both required maximal assist. He was continent of bladder and bowel. Bed mobility required contact guard assist. Transfers were done with minimal assist and voice cues. He used a front-wheeled walker. Balance required minimal assist and voice cues. Endurance was limited by orthostatic hypotension. Regarding cognition, he was noted to have mild impairment in attention and executive function. On today's exam, he likely is able to transfer with less assistance, based on his ability to arise from seated. Otherwise, there are no significant differences from the pre-admission screen. IMPRESSION: This is a 72-year-old man with advanced Parkinson disease, who recently moved from [place], has had reduced opportunity to participate in his usual exercise habit and has had a 2 week decline in function characterized by extreme orthostatic intolerance to the point at which his was no longer able to care for him, so he was brought to the hospital. Evaluation there revealed grade 1 diastolic dysfunction and aortic and mitral regurgitation. Otherwise, labs and studies were unremarkable. Midodrine was reduced due to seated and supine hypertension. Fludrocortisone was continued and salt tablets were introduced. He remained quite orthostatic, but he was able to begin participating in therapies and was appropriate for inpatient rehabilitation. His goal is to complete a rehabilitation stay and then return to the [facility] with his until his apartment is ready in October. For a safe discharge he will need to achieve hemodynamic stability and tolerate activity to resume safe mobilization. He will need to achieve modified independence for ADLs and functional activities using the least restrictive device. The need for durable medical equipment will be assessed and ordered as needed. He will have therapy on a modified schedule with Physical Therapy, Occupational Therapy, and Speech/Language Pathology for 30-60 minutes per day for each discipline on 7 days a week to total 15 hours a week or more. His expected duration of stay is 7-10 days. It is anticipated that upon discharge, he will continue to benefit from home health services including nursing, occupational therapy, and physical therapy. PLAN: 1. Parkinson disease with orthostatic hypotension and markedly increased debility over several weeks. PT and OT to optimize his mobility and activities of daily living. 2. Orthostatic hypotension Continue midodrine, fludrocortisone, and salt tablets. Will additionally add thigh-high RAUL hose, and will maintain his bed in reverse Trendelenburg when he is in bed with the head of the bed approximately 2 inches above the foot of the bed. There will be monitoring of orthostatic symptoms as well as orthostatic blood pressure and pulse. Treatment will be geared toward his symptomatology rather than his blood pressure numbers. Will have some caution about excessive supine hypertension. With no prior echocardiogram, query whether valve regurgitation has anything to do with his worsening of symptoms. We will seek old records including whether an echocardiogram was done when he was in [place]. 3. Hypophonia and dysprosody. Evaluation and treatment per Speech and Language Pathology. 4. Parkinson disease. Continue Rytary as well as rasagiline. 5. Dyslipidemia. Continue rosuvastatin. 6. Cognitive dysfunction. Previously on donepezil. He probably does well to not take the donepezil due to multiple adverse effects. He will have further evaluation and treatment per Speech and Language Pathology regarding cognition. 7. Urinary frequency. This has been chronic. There is no dysuria. He reports that he has had negligible postvoid residual, but this will be checked again. The use of bladder anticholinergics is contraindicated due to cognitive effects. 8. Glycopyrrolate was started in the hospital likely to treat drooling. He reports he has had Botox injections in the past. He will be followed for efficacy of this treatment. 9. Prophylaxis. His risk for DVT is somewhat indeterminate. His decline has been gradual though more acute over the last 2 weeks. He will be monitored for his activity tolerance and if he is able to ambulate 150 feet or more 3 times a day and ambulate to meals, then there will be no need for pharmacologic prophylaxis. FOLLOWUP: He will follow up with neurologist Dr. Escobedo at the [facility]. /[id number]/MODL MTDD
[2018-08-04] MEDS: FLUDROCORTISONE ACETATE 0.1 MG TAB PO SCH (20:51)
[2018-08-04] MEDS: ROSUVASTATIN CALCIUM 20 MG TAB PO SCH (20:51)
[2018-08-04] MEDS: SODIUM CHLORIDE 1,000 MG TAB PO SCH (20:51)
[2018-08-04] MEDS: LEVODOPA PO SCH (20:52)
[2018-08-04] MEDS: CARBIDOPA PO SCH (20:52)
[2018-08-04] MEDS: GLYCOPYRROLATE 1 MG TAB PO SCH (20:57)
[2018-08-04] MEDS ORDERED: LEVODOPA PO SCH (21:00)
[2018-08-04] MEDS ORDERED: CARBIDOPA PO SCH (21:00)
[2018-08-05] MEDS: MIDODRINE HCL 5 MG TAB PO SCH ×3 (07:36→15:28)
[2018-08-05] MEDS: SODIUM CHLORIDE 1,000 MG TAB PO SCH ×2 (07:39→21:14)
[2018-08-05] MEDS: FLUDROCORTISONE ACETATE 0.1 MG TAB PO SCH ×2 (07:39→21:14)
[2018-08-05] MEDS: CARBIDOPA PO SCH ×2 (10:50→21:17)
[2018-08-05] MEDS: LEVODOPA PO SCH ×2 (10:50→21:17)
[2018-08-05] MEDS: Rasagiline Mesylate [Azilect] 1 MG PO SCH (10:51)
[2018-08-05] MEDS: GLYCOPYRROLATE 1 MG TAB PO SCH ×3 (10:52→21:13)
--- NOTE | 2018-08-05 13:04 | PDOREHIP ---
Admission [facility] - Admission - 3 Day Assessment Period Admission Date/Day 1: 08/04/18 Day 2: 08/05/18 Day 3: 08/06/18 - Active Diagnoses Comorbidities and Co-existing Conditions at Admission: 86265. None of the Above - Skin Conditions Unhealed Pressure Ulcer (1 or more/Stage 1 or >)-Admission: 0. No # Stage 1 Pressure Ulcers-Admission: 0 # Stage 2 Pressure Ulcers-Admission: 0 # Stage 3 Pressure Ulcers-Admission: 0 # Stage 4 Pressure Ulcers-Admission: 0 # Unstageable Pressure Ulcers (Non-remove Dress)-Admission: 0 # Unstageable Pressure Ulcers (Slough/Eschar)-Admission: 0 # Unstageable Pressure Ulcers (Deep Tissue Injury)-Admission: 0
--- NOTE | 2018-08-05 13:04 | SOAPPROG ---
SOAP Progress Note Assessment/Plan: Assessment: Parkinson disease with orthostatic hypotension and markedly increased debility over several weeks. PT and OT to optimize his mobility and activities of daily living. Orthostatic hypotension Continue midodrine, fludrocortisone, and salt tablets. Will additionally add thigh-high RAUL hose, and will maintain his bed in reverse Trendelenburg when he is in bed with the head of the bed approximately 2 inches above the foot of the bed. There will be monitoring of orthostatic symptoms as well as orthostatic blood pressure and pulse. * Treatment will be geared toward his symptomatology rather than his blood pressure numbers. Will have some caution about excessive supine hypertension. * With no prior echocardiogram, query whether valve regurgitation has anything to do with his worsening of symptoms. We will seek old records including whether an echocardiogram was done when he was in [place]. Hypophonia and dysprosody. Evaluation and treatment per Speech and Language Pathology. Parkinson disease. Continue Rytary as well as rasagiline. Dyslipidemia. Continue rosuvastatin. Cognitive dysfunction. Previously on donepezil. He probably does well to not take the donepezil due to multiple adverse effects. He will have further evaluation and treatment per Speech and Language Pathology regarding cognition. Urinary frequency. This has been chronic. There is no dysuria. He reports that he has had negligible postvoid residual, but this will be checked again. The use of bladder anticholinergics is contraindicated due to cognitive effects. Drooling. Continue glycopyrrolate, which he reports he was taking intermittently. He reports he has had Botox injections in the past. He will be followed for efficacy of glycopyrrolate. Prophylaxis. His risk for DVT is somewhat indeterminate. His decline has been gradual though more acute over the last 2 weeks. He will be monitored for his activity tolerance and if he is able to ambulate 150 feet or more 3 times a day and ambulate to meals, then there will be no need for pharmacologic prophylaxis. FOLLOWUP: He will follow up with neurologist Dr. Escobedo at the [facility]. 08/05/18 13:05 Subjective: Slept well. No complaints. Has been participating in therapies today and denies orthostatic symptoms. No cough or shortness of breath. Objective: Vital Signs Temp Pulse Resp BP Pulse Ox 36.3 C 80 15 114/73 96 08/05/18 07:10 08/05/18 12:24 08/05/18 07:10 08/05/18 12:24 08/05/18 07:10 Laboratory Results 08/04/18 19:45 08/04/18 08/05/18 08/06/18 05:59 05:59 05:59 Intake Total 500 500 Output Total 900 800 Balance -400 -300 Physical Exam - Physical Exam General Appearance: WD/WN, alert, no apparent distress Respiratory: normal breath sounds, No crackles, No rhonchi, No wheezing Cardiac/Chest: regular rate, rhythm, No edema Skin: normal color, warm/dry Neuro/Psych: alert, normal mood/affect, oriented x 3, other (Seated with somewhat flexed posture. Hypophonic.) ICD10 Worksheet Patient Problems: Problems Problem Status Onset Orthostatic hypotension Acute Parkinsons disease Acute
[2018-08-05] MEDS: ROSUVASTATIN CALCIUM 20 MG TAB PO SCH (21:14)
[2018-08-05] MEDS ORDERED: FAMOTIDINE 20 MG TAB PO ONE (22:00)
[2018-08-06] MEDS: CARBIDOPA PO SCH ×2 (08:20→20:46)
[2018-08-06] MEDS: LEVODOPA PO SCH ×2 (08:20→20:46)
[2018-08-06] MEDS: FLUDROCORTISONE ACETATE 0.1 MG TAB PO SCH ×2 (08:21→20:04)
[2018-08-06] MEDS: GLYCOPYRROLATE 1 MG TAB PO SCH ×2 (08:21→20:05)
[2018-08-06] MEDS: Rasagiline Mesylate [Azilect] 1 MG PO SCH (08:22)
[2018-08-06] MEDS: SODIUM CHLORIDE 1,000 MG TAB PO SCH ×2 (08:22→20:04)
[2018-08-06] MEDS: MIDODRINE HCL 5 MG TAB PO SCH ×2 (10:53→11:59)
--- NOTE | 2018-08-06 11:38 | SOAPPROG ---
SOAP Progress Note Assessment/Plan: Assessment: Parkinson disease with orthostatic hypotension and markedly increased debility over several weeks. * Initial functional independence measure is 81 on 08/06/2018. Functionally variable. Has apraxia and decreased motor planning. Retropulsive. Ambulated 90 ft contact guard assist with front wheeled walker. Climbed and descended 3 steps contact guard assist with cues. 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 Upper body dressing required setup, lower body dressing required moderate assist. He bathes with setup. For bath transfer he initially began turning 360 degrees and had some motor perseveration. * Continue PT and OT to optimize his mobility and activities of daily living. Orthostatic hypotension Continue midodrine, fludrocortisone, and salt tablets. Will additionally add thigh-high RAUL hose, and will maintain his bed in reverse Trendelenburg when he is in bed with the head of the bed approximately 2 inches above the foot of the bed. There will be monitoring of orthostatic symptoms as well as orthostatic blood pressure and pulse. * Treatment will be geared toward his symptomatology rather than his blood pressure numbers. Will have some caution about excessive supine hypertension. * With no prior echocardiogram, query whether valve regurgitation has anything to do with his worsening of symptoms. We will seek old records including whether an echocardiogram was done when he was in [place]. * Midodrine has been reduced to 2.5 mg three times daily due to elevated blood pressures. Will change to p.r.n.orthostatic symptoms on 08/06/2018. Hypophonia and dysprosody as well as labial leak with drooling saliva on the left. Has some left facial weakness due to remote SDH. 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 * Continue Speech and Language Pathology. Trial of E stim for labial leak * Continue glycopyrrolate. He has had Botox injections to the salivary glands in the past, and he can pursue this again after discharge. Cognitive impairment. Previously on donepezil. Further evaluation pending per speech language pathology. Parkinson disease. Continue Rytary as well as rasagiline. Dyslipidemia. Continue rosuvastatin. Urinary frequency. This has been chronic. There is no dysuria. He reports that he has had negligible postvoid residual, but this will be checked again. The use of bladder anticholinergics is contraindicated due to cognitive effects. Prophylaxis. His risk for DVT is somewhat indeterminate. His decline has been gradual though more acute over the last 2 weeks. Encourage increased mobility, and ambulate to meals. No pharmacologic prophylaxis. DISPOSITION: Attended staffing, 15 min. Discussed with case management, nursing, dietitian, PT, OT, [employer]. Currently living in air [place] be with his where there are 3 steps to enter. In the process of building a house which presumably will be single-level. He will likely continue to require assistance for balance with mobility and ADLs. Primary mobility may be by wheelchair. Tentative discharge date set for 08/13/2017. FOLLOWUP: He will follow up with neurologist Dr. Escobedo at the [facility]. 08/06/18 12:01 Subjective: Awoke during the night sideways across the bed. He thinks the bed alarms not go off. Bed has been replaced. Otherwise without complaints. Denies symptoms of orthostatic hypotension overall, but when he feels orthostatic it is worst when 1st arising in the morning. Objective: Vital Signs Temp Pulse Resp BP Pulse Ox 36.4 C 67 16 164/94 H 95 08/06/18 07:06 08/06/18 07:06 08/06/18 07:06 08/06/18 07:06 08/06/18 07:06 Laboratory Results 08/04/18 19:45 08/05/18 08/06/18 08/07/18 05:59 05:59 05:59 Intake Total 500 1870 Output Total 900 1650 Balance -400 220 - Time Spent With Patient Time Spent With Patient: Greater than 35 min floor time today, including more than 50% of time in coordination of care during staffing meeting, and counseling patient. Physical Exam - Physical Exam General Appearance: WD/WN, alert, no apparent distress Respiratory: normal breath sounds, No crackles, No rhonchi, No wheezing Cardiac/Chest: regular rate, rhythm, No edema, No diastolic murmur, No systolic murmur Skin: normal color, warm/dry Neuro/Psych: alert, normal mood/affect, oriented x 3, other (Masked facies) ICD10 Worksheet Patient Problems: Problems Problem Status Onset Orthostatic hypotension Acute Parkinsons disease Acute
[2018-08-06] MEDS: ROSUVASTATIN CALCIUM 20 MG TAB PO SCH (20:04)
[2018-08-06] MEDS ORDERED: FAMOTIDINE 20 MG TAB ONE (20:18)
[2018-08-06] MEDS: FAMOTIDINE 20 MG TAB PO SCH (21:01)
[2018-08-07] MEDS: SODIUM CHLORIDE 1,000 MG TAB PO SCH ×2 (09:26→20:09)
[2018-08-07] MEDS: FLUDROCORTISONE ACETATE 0.1 MG TAB PO SCH ×2 (09:26→20:09)
[2018-08-07] MEDS: Rasagiline Mesylate [Azilect] 1 MG PO SCH (09:27)
[2018-08-07] MEDS: GLYCOPYRROLATE 1 MG TAB PO SCH ×2 (09:27→20:09)
[2018-08-07] MEDS: CARBIDOPA PO SCH ×2 (09:27→20:09)
[2018-08-07] MEDS: LEVODOPA PO SCH ×2 (09:27→20:09)
--- NOTE | 2018-08-07 14:52 | HOSPPROG ---
Hospitalist Progress Note Assessment/Plan: Parkinson disease with orthostatic hypotension and markedly increased debility over several weeks. * Initial functional independence measure is 81 on 08/06/2018. Functionally variable. Has apraxia and decreased motor planning. Retropulsive. Ambulated 90 ft contact guard assist with front wheeled walker. Climbed and descended 3 steps contact guard assist with cues. 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 Upper body dressing required setup, lower body dressing required moderate assist. He bathes with setup. For bath transfer he initially began turning 360 degrees and had some motor perseveration. * Continue PT and OT to optimize his mobility and activities of daily living. Orthostatic hypotension Continue midodrine, fludrocortisone, and salt tablets. Will additionally add thigh-high RAUL hose, and will maintain his bed in reverse Trendelenburg when he is in bed with the head of the bed approximately 2 inches above the foot of the bed. There will be monitoring of orthostatic symptoms as well as orthostatic blood pressure and pulse. * Treatment will be geared toward his symptomatology rather than his blood pressure numbers. Will have some caution about excessive supine hypertension. * With no prior echocardiogram, query whether valve regurgitation has anything to do with his worsening of symptoms. We will seek old records including whether an echocardiogram was done when he was in [place]. * Midodrine has been reduced to 2.5 mg three times daily due to elevated blood pressures. Will change to p.r.n.orthostatic symptoms on 08/06/2018. * BLOOD PRESSURE ON HIGHER SIDE BUT WILL CONT TO WATCH Hypophonia and dysprosody as well as labial leak with drooling saliva on the left. Has some left facial weakness due to remote SDH. 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 * Continue Speech and Language Pathology. Trial of E stim for labial leak * Continue glycopyrrolate. He has had Botox injections to the salivary glands in the past, and he can pursue this again after discharge. Cognitive impairment. Previously on donepezil. Further evaluation pending per speech language pathology. Parkinson disease. Continue Rytary as well as rasagiline. Dyslipidemia. Continue rosuvastatin. Urinary frequency. This has been chronic. There is no dysuria. He reports that he has had negligible postvoid residual, but this will be checked again. The use of bladder anticholinergics is contraindicated due to cognitive effects. Prophylaxis. His risk for DVT is somewhat indeterminate. His decline has been gradual though more acute over the last 2 weeks. Encourage increased mobility, and ambulate to meals. No pharmacologic prophylaxis. Subjective: variable blood pressures. doing well with therapy. no new complaints Objective: Vital Signs Temp Pulse Resp BP Pulse Ox 36.5 C 68 16 168/90 H 96 08/07/18 07:27 08/07/18 07:27 08/07/18 07:27 08/07/18 07:27 08/07/18 07:27 Laboratory Results 08/04/18 19:45 08/06/18 08/07/18 08/08/18 05:59 05:59 05:59 Intake Total 1870 2150 Output Total 1650 1500 600 Balance 220 650 -600 - Physical Exam Constitutional: no apparent distress, appears nourished, not in pain Eyes: anicteric sclera Respiratory: no respiratory distress Neurologic: AAOx3 Psychiatric: interacting appropriately, not anxious, not encephalopathic, thought process linear ICD10 Worksheet Patient Problems: Problems Problem Status Onset Orthostatic hypotension Acute Parkinsons disease Acute
[2018-08-07] MEDS: FAMOTIDINE 20 MG TAB PO SCH (20:09)
[2018-08-07] MEDS: ROSUVASTATIN CALCIUM 20 MG TAB PO SCH (20:09)
[2018-08-08] MEDS: FLUDROCORTISONE ACETATE 0.1 MG TAB PO SCH ×2 (08:41→20:39)
[2018-08-08] MEDS: CARBIDOPA PO SCH ×2 (08:41→20:39)
[2018-08-08] MEDS: SODIUM CHLORIDE 1,000 MG TAB PO SCH ×2 (08:41→20:39)
[2018-08-08] MEDS: GLYCOPYRROLATE 1 MG TAB PO SCH ×2 (08:41→20:39)
[2018-08-08] MEDS: LEVODOPA PO SCH ×2 (08:41→20:39)
[2018-08-08] MEDS: Rasagiline Mesylate [Azilect] 1 MG PO SCH (08:41)
--- NOTE | 2018-08-08 11:13 | HOSPPROG ---
Hospitalist Progress Note Assessment/Plan: Parkinson disease with orthostatic hypotension and markedly increased debility over several weeks. * Initial functional independence measure is 81 on 08/06/2018. Functionally variable. Has apraxia and decreased motor planning. Retropulsive. Ambulated 90 ft contact guard assist with front wheeled walker. Climbed and descended 3 steps contact guard assist with cues. 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 Upper body dressing required setup, lower body dressing required moderate assist. He bathes with setup. For bath transfer he initially began turning 360 degrees and had some motor perseveration. * Continue PT and OT to optimize his mobility and activities of daily living. Orthostatic hypotension Continue midodrine, fludrocortisone, and salt tablets. Will additionally add thigh-high RAUL hose, and will maintain his bed in reverse Trendelenburg when he is in bed with the head of the bed approximately 2 inches above the foot of the bed. There will be monitoring of orthostatic symptoms as well as orthostatic blood pressure and pulse. * Treatment will be geared toward his symptomatology rather than his blood pressure numbers. Will have some caution about excessive supine hypertension. * With no prior echocardiogram, query whether valve regurgitation has anything to do with his worsening of symptoms. We will seek old records including whether an echocardiogram was done when he was in [place]. * Midodrine has been reduced to 2.5 mg three times daily due to elevated blood pressures. Will change to p.r.n.orthostatic symptoms on 08/06/2018. * BLOOD PRESSURE ON HIGHER SIDE BUT WILL CONT TO WATCH Hypophonia and dysprosody as well as labial leak with drooling saliva on the left. Has some left facial weakness due to remote SDH. 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 * Continue Speech and Language Pathology. Trial of E stim for labial leak * Continue glycopyrrolate. He has had Botox injections to the salivary glands in the past, and he can pursue this again after discharge. Cognitive impairment. Previously on donepezil. Further evaluation pending per speech language pathology. Visual hallucinations - * occurs during hypnagogic phase before sleep * could try an low dose anti-psychotic at bedtime but it doesn't seem to be bothering him much Parkinson disease. Continue Rytary as well as rasagiline. Dyslipidemia. Continue rosuvastatin. Urinary frequency. This has been chronic. There is no dysuria. He reports that he has had negligible postvoid residual, but this will be checked again. The use of bladder anticholinergics is contraindicated due to cognitive effects. Prophylaxis. His risk for DVT is somewhat indeterminate. His decline has been gradual though more acute over the last 2 weeks. Encourage increased mobility, and ambulate to meals. No pharmacologic prophylaxis. Subjective: c/o of visual hallucunations before sleep. going on for 15 years Objective: Vital Signs Temp Pulse Resp BP Pulse Ox 36.4 C 68 16 147/84 H 96 08/08/18 08:00 08/08/18 10:45 08/08/18 08:00 08/08/18 10:45 08/08/18 08:00 Laboratory Results 08/04/18 19:45 08/07/18 08/08/18 08/09/18 05:59 05:59 05:59 Intake Total 2150 350 360 Output Total 1500 1750 400 Balance 650 -1400 -40 - Physical Exam Constitutional: no apparent distress, appears nourished, not in pain Eyes: anicteric sclera Respiratory: no respiratory distress Neurologic: AAOx3 Psychiatric: interacting appropriately, not anxious, not encephalopathic, thought process linear ICD10 Worksheet Patient Problems: Problems Problem Status Onset Orthostatic hypotension Acute Parkinsons disease Acute
[2018-08-08] MEDS: FAMOTIDINE 20 MG TAB PO SCH (20:39)
[2018-08-08] MEDS: ROSUVASTATIN CALCIUM 20 MG TAB PO SCH (20:39)
[2018-08-09] MEDS: LEVODOPA PO SCH ×2 (08:04→20:29)
[2018-08-09] MEDS: CARBIDOPA PO SCH ×2 (08:04→20:29)
[2018-08-09] MEDS: GLYCOPYRROLATE 1 MG TAB PO SCH ×2 (08:05→20:28)
[2018-08-09] MEDS: Rasagiline Mesylate [Azilect] 1 MG PO SCH (08:05)
[2018-08-09] MEDS: FLUDROCORTISONE ACETATE 0.1 MG TAB PO SCH ×2 (08:05→20:28)
[2018-08-09] MEDS: SODIUM CHLORIDE 1,000 MG TAB PO SCH ×2 (08:06→20:28)
--- NOTE | 2018-08-09 13:44 | SOAPPROG ---
SOAP Progress Note Assessment/Plan: Assessment: Parkinson disease with orthostatic hypotension and markedly increased debility over several weeks. * Initial functional independence measure is 81 on 08/06/2018. Functionally variable. Has apraxia and decreased motor planning. Retropulsive. Ambulated 90 ft contact guard assist with front wheeled walker. Climbed and descended 3 steps contact guard assist with cues. 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 Upper body dressing required setup, lower body dressing required moderate assist. He bathes with setup. For bath transfer he initially began turning 360 degrees and had some motor perseveration. * Now ambulating 150 ft or greater multiple times a day with front wheeled walker though with standby to contact guard assist and he requires cues, as of . * Continue PT and OT to optimize his mobility and activities of daily living. Orthostatic hypotension Continue midodrine, fludrocortisone, and salt tablets. Will additionally add thigh-high RAUL hose, and will maintain his bed in reverse Trendelenburg when he is in bed with the head of the bed approximately 2 inches above the foot of the bed. There will be monitoring of orthostatic symptoms as well as orthostatic blood pressure and pulse. * Treatment will be geared toward his symptomatology rather than his blood pressure numbers. Will have some caution about excessive supine hypertension. * With no prior echocardiogram, query whether valve regurgitation has anything to do with his worsening of symptoms. We will seek old records including whether an echocardiogram was done when he was in [place]. * Midodrine has been reduced to 2.5 mg three times daily due to elevated blood pressures. Will change to p.r.n.orthostatic symptoms on 08/06/2018. Hypophonia and dysprosody as well as labial leak with drooling saliva on the left. Has some left facial weakness due to remote SDH. 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 * Continue Speech and Language Pathology. Trial of E stim for labial leak * Continue glycopyrrolate. He has had Botox injections to the salivary glands in the past, and he can pursue this again after discharge. Cognitive impairment. Previously on donepezil. Further evaluation pending per speech language pathology. Parkinson disease. Continue Rytary as well as rasagiline. Dyslipidemia. Continue rosuvastatin. Urinary frequency. This has been chronic. There is no dysuria. He reports that he has had negligible postvoid residual, but this will be checked again. The use of bladder anticholinergics is contraindicated due to cognitive effects. Prophylaxis. His risk for DVT is somewhat indeterminate. His decline has been gradual though more acute over the last 2 weeks. Encourage increased mobility, and ambulate to meals. No pharmacologic prophylaxis. DISPOSITION: Currently living in an AirBNB with his where there are 3 steps to enter. In the process of building a house which presumably will be single-level. He will likely continue to require assistance for balance with mobility and ADLs. Primary mobility may be by wheelchair. Tentative discharge date set for 08/13/2017. FOLLOWUP: He will follow up with neurologist Dr. Escobedo at the [facility]. 08/09/18 13:41 Subjective: No complaints. Reports that he has been having "wild dreams" with hallucinations when he is going to bed, but these have been going on for many years. Sleeps well, not in pain, no fevers or chills, no cough or dyspnea. Objective: Vital Signs Temp Pulse Resp BP Pulse Ox 36.6 C 68 15 104/66 96 08/09/18 07:49 08/09/18 07:49 08/09/18 07:49 08/09/18 07:49 08/09/18 07:49 Laboratory Results 08/04/18 19:45 08/08/18 08/09/18 08/10/18 05:59 05:59 05:59 Intake Total 350 960 550 Output Total 1750 1390 Balance -1400 -430 550 Physical Exam - Physical Exam General Appearance: WD/WN, alert, no apparent distress Respiratory: normal breath sounds, No crackles, No rhonchi, No wheezing Cardiac/Chest: regular rate, rhythm, No edema, No diastolic murmur, No systolic murmur Skin: normal color, warm/dry Neuro/Psych: alert, normal mood/affect, oriented x 3, abnormal gait (Narrow base , short steps, EN bloc turning, front wheeled walker, contact guard per physical therapist.) ICD10 Worksheet Patient Problems: Problems Problem Status Onset Orthostatic hypotension Acute Parkinsons disease Acute
[2018-08-09] MEDS: ROSUVASTATIN CALCIUM 20 MG TAB PO SCH (20:28)
[2018-08-09] MEDS: FAMOTIDINE 20 MG TAB PO SCH (20:28)
[2018-08-10] MEDS: GLYCOPYRROLATE 1 MG TAB PO SCH ×2 (07:52→19:57)
[2018-08-10] MEDS: FLUDROCORTISONE ACETATE 0.1 MG TAB PO SCH ×2 (07:52→19:56)
[2018-08-10] MEDS: SODIUM CHLORIDE 1,000 MG TAB PO SCH ×2 (07:52→19:57)
[2018-08-10] MEDS: Rasagiline Mesylate [Azilect] 1 MG PO SCH (07:53)
[2018-08-10] MEDS: CARBIDOPA PO SCH ×2 (07:57→19:59)
[2018-08-10] MEDS: LEVODOPA PO SCH ×2 (07:57→19:59)
--- NOTE | 2018-08-10 09:28 | SOAPPROG ---
SOAP Progress Note Assessment/Plan: 72-year-old male with Parkinson's disease and severe orthostatic hypotension related to parkinsonism, impairments in mobility, self-care. Today's update: Orthostatic hypotension continues despite midodrine, fludrocortisone and salt tablets. Was orthostatic without thigh-high Lang hose, improved when those were applied. Patient has not been using an abdominal binder but he reports issues with that during the night in the past. Adding abdominal binder and leg wraps p.r.n. For orthostasis during the day. Continue to monitor closely, monitor fluid status, continue search for prior records. Variably confused during the day per staff reports, will require 24 hr supervision after discharge for monitoring and redirection. A total of 25 min was spent on the floor in the care of the patient, the majority of which was spent counseling coordination of care regarding orthostatic hypotension management and discussion of possible treatment options. Additional issues reviewed without change today include direct treatment of parkinsonism, dyslipidemia, urinary urgency, prophylaxis. 08/10/18 09:24 08/10/18 12:19 Subjective: Chief complaint: Orthostasis during therapy No acute events overnight. Patient denies any new shortness of breath or chest pain, no new numbness, tingling, or weakness. Therapist notes that he is orthostatic during therapy session but did not have on thigh-high Lang hose as directed. Symptoms improved once those were applied. Discussed with the patient his history of abdominal binder use and he states that he has used in the past but it was cumbersome at night when he had to get up to urinate. He was open to trying an abdominal binder during the day as well as leg wraps. Objective: Vital Signs Temp Pulse Resp BP Pulse Ox 36.4 C 88 18 101/65 95 08/09/18 20:00 08/09/18 20:00 08/09/18 20:00 08/09/18 20:00 08/09/18 20:00 Laboratory Results 08/04/18 19:45 08/09/18 08/10/18 08/11/18 05:59 05:59 05:59 Intake Total 960 1130 Output Total 1390 1250 Balance -430 -120 Physical Exam - Physical Exam General Appearance: WD/WN, alert, no apparent distress, other (Sitting at bedside with physical therapy) EENT: No scleral icterus (R), No scleral icterus (L) Respiratory: No respiratory distress, No accessory muscle use Cardiac/Chest: normal peripheral pulses, regular rate, rhythm, No edema Skin: normal color, warm/dry, No cyanosis, No diaphoresis Extremities: No pedal edema, No swelling Neuro/Psych: alert, normal mood/affect ICD10 Worksheet Patient Problems: Problems Problem Status Onset Orthostatic hypotension Acute Parkinsons disease Acute
[2018-08-10] MEDS: FAMOTIDINE 20 MG TAB PO SCH (19:56)
[2018-08-10] MEDS: ROSUVASTATIN CALCIUM 20 MG TAB PO SCH (19:56)
[2018-08-11] MEDS: CARBIDOPA PO SCH ×2 (08:10→20:10)
[2018-08-11] MEDS: LEVODOPA PO SCH ×2 (08:10→20:10)
[2018-08-11] MEDS: GLYCOPYRROLATE 1 MG TAB PO SCH ×2 (08:11→20:07)
[2018-08-11] MEDS: FLUDROCORTISONE ACETATE 0.1 MG TAB PO SCH ×2 (08:11→20:06)
[2018-08-11] MEDS: Rasagiline Mesylate [Azilect] 1 MG PO SCH (08:11)
[2018-08-11] MEDS: SODIUM CHLORIDE 1,000 MG TAB PO SCH ×2 (08:12→20:07)
[2018-08-11] MEDS: MIDODRINE HCL 5 MG TAB PO PRN (10:55)
--- NOTE | 2018-08-11 12:51 | SOAPPROG ---
SOAP Progress Note Assessment/Plan: Assessment: Parkinson disease with orthostatic hypotension and markedly increased debility over several weeks. * Initial functional independence measure is 81 on 08/06/2018. Functionally variable. Has apraxia and decreased motor planning. Retropulsive. Ambulated 90 ft contact guard assist with front wheeled walker. Climbed and descended 3 steps contact guard assist with cues. 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 Upper body dressing required setup, lower body dressing required moderate assist. He bathes with setup. For bath transfer he initially began turning 360 degrees and had some motor perseveration. * Now ambulating 150 ft or greater multiple times a day with front wheeled walker though with standby to contact guard assist and he requires cues, as of . * Continue PT and OT to optimize his mobility and activities of daily living. Orthostatic hypotension Continue midodrine, fludrocortisone, and salt tablets. Will additionally add thigh-high RAUL hose, and will maintain his bed in reverse Trendelenburg when he is in bed with the head of the bed approximately 2 inches above the foot of the bed. There will be monitoring of orthostatic symptoms as well as orthostatic blood pressure and pulse. * Treatment will be geared toward his symptomatology rather than his blood pressure numbers. Will have some caution about excessive supine hypertension. * With no prior echocardiogram, query whether valve regurgitation has anything to do with his worsening of symptoms. We will seek old records including whether an echocardiogram was done when he was in [place]. * Midodrine has been reduced to 2.5 mg three times daily due to elevated blood pressures. Will change to p.r.n.orthostatic symptoms on 08/06/2018. Add parameters to give midodrine for systolic blood pressure less than 90 and to check orthostatic blood pressure q.a.m. and p.r.n. starting 08/11/2017. Hypophonia and dysprosody as well as labial leak with drooling saliva on the left. Has some left facial weakness due to remote SDH. 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 * Continue Speech and Language Pathology. Trial of E stim for labial leak * Continue glycopyrrolate. He has had Botox injections to the salivary glands in the past, and he can pursue this again after discharge. Cognitive impairment. Previously on donepezil. Further evaluation pending per speech language pathology. Parkinson disease. Continue Rytary as well as rasagiline. Dyslipidemia. Continue rosuvastatin. Urinary frequency. This has been chronic. There is no dysuria. He reports that he has had negligible postvoid residual, but this will be checked again. The use of bladder anticholinergics is contraindicated due to cognitive effects. Prophylaxis. His risk for DVT is somewhat indeterminate. His decline has been gradual though more acute over the last 2 weeks. Encourage increased mobility, and ambulate to meals. No pharmacologic prophylaxis. DISPOSITION: Currently living in an AirBNB with his where there are 3 steps to enter. In the process of building a house which presumably will be single-level. He will likely continue to require assistance for balance with mobility and ADLs. Primary mobility may be by wheelchair. Tentative discharge date set for 08/13/2017. FOLLOWUP: He will follow up with neurologist Dr. Escobedo at the [facility]. 08/11/18 12:47 Subjective: Episode of symptomatic orthostasis this morning. Systolic blood pressure dropped from 159 to 71 with standing. Otherwise doing well. Slept well. No fevers or chills. No cough or dyspnea. Objective: Vital Signs Temp Pulse Resp BP Pulse Ox 36.5 C 89 15 71/38 L 94 08/11/18 07:15 08/11/18 10:38 08/11/18 07:15 08/11/18 10:38 08/11/18 10:38 Laboratory Results 08/04/18 19:45 08/10/18 08/11/18 08/12/18 05:59 05:59 05:59 Intake Total 1130 786 450 Output Total 1250 1325 Balance -120 -539 450 Physical Exam - Physical Exam General Appearance: WD/WN, alert, mild distress Respiratory: No respiratory distress, No accessory muscle use Cardiac/Chest: No edema Skin: normal color, warm/dry Neuro/Psych: alert, normal mood/affect, oriented x 3 ICD10 Worksheet Patient Problems: Problems Problem Status Onset Orthostatic hypotension Acute Parkinsons disease Acute
[2018-08-11] MEDS: FAMOTIDINE 20 MG TAB PO SCH (20:07)
[2018-08-11] MEDS: ROSUVASTATIN CALCIUM 20 MG TAB PO SCH (20:07)
[2018-08-12] MEDS: LEVODOPA PO SCH ×2 (07:46→20:23)
[2018-08-12] MEDS: CARBIDOPA PO SCH ×2 (07:46→20:23)
[2018-08-12] MEDS: Rasagiline Mesylate [Azilect] 1 MG PO SCH (07:47)
[2018-08-12] MEDS: GLYCOPYRROLATE 1 MG TAB PO SCH ×2 (07:47→20:14)
[2018-08-12] MEDS: FLUDROCORTISONE ACETATE 0.1 MG TAB PO SCH ×2 (07:48→20:14)
[2018-08-12] MEDS: SODIUM CHLORIDE 1,000 MG TAB PO SCH ×2 (07:48→20:14)
--- NOTE | 2018-08-12 10:51 | SOAPPROG ---
SOAP Progress Note Assessment/Plan: Assessment: Parkinson disease with orthostatic hypotension and markedly increased debility over several weeks. * Initial functional independence measure is 81 on 08/06/2018. Functionally variable. Has apraxia and decreased motor planning. Retropulsive. Ambulated 90 ft contact guard assist with front wheeled walker. Climbed and descended 3 steps contact guard assist with cues. 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 Upper body dressing required setup, lower body dressing required moderate assist. He bathes with setup. For bath transfer he initially began turning 360 degrees and had some motor perseveration. * Now ambulating 150 ft or greater multiple times a day with front wheeled walker though with standby to contact guard assist and he requires cues, as of . * Trialing single-point cane on 08/12/2018. * Continue PT and OT to optimize his mobility and activities of daily living. Orthostatic hypotension Continue midodrine, fludrocortisone, and salt tablets. Will additionally add thigh-high RAUL hose, and will maintain his bed in reverse Trendelenburg when he is in bed with the head of the bed approximately 2 inches above the foot of the bed. There will be monitoring of orthostatic symptoms as well as orthostatic blood pressure and pulse. * Treatment will be geared toward his symptomatology rather than his blood pressure numbers. Will have some caution about excessive supine hypertension. * With no prior echocardiogram, query whether valve regurgitation has anything to do with his worsening of symptoms. We will seek old records including whether an echocardiogram was done when he was in [place]. * Midodrine has been reduced to 2.5 mg three times daily due to elevated blood pressures. Will change to p.r.n.orthostatic symptoms on 08/06/2018. Added parameters to give midodrine for systolic blood pressure less than 90 and to check orthostatic blood pressure q.a.m. and p.r.n. starting 08/11/2017. Hypophonia and dysprosody as well as labial leak with drooling saliva on the left. Has some left facial weakness due to remote SDH. 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 * Continue Speech and Language Pathology. Labial leak is improving with E stim. * Continue glycopyrrolate. He has had Botox injections to the salivary glands in the past, and he can pursue this again after discharge. Cognitive impairment. Previously on donepezil. Further evaluation pending per speech language pathology. Parkinson disease. Continue Rytary as well as rasagiline. Dyslipidemia. Continue rosuvastatin. Urinary frequency. This has been chronic. There is no dysuria. He reports that he has had negligible postvoid residual, but this will be checked again. The use of bladder anticholinergics is contraindicated due to cognitive effects. Prophylaxis. His risk for DVT is somewhat indeterminate. His decline has been gradual though more acute over the last 2 weeks. Encourage increased mobility, and ambulate to meals. No pharmacologic prophylaxis. DISPOSITION: Currently living in an AirBNB with his where there are 3 steps to enter. In the process of building a house which presumably will be single-level. He will likely continue to require assistance for balance with mobility and ADLs. Primary mobility may be by wheelchair. Discharge 08/13/2018. FOLLOWUP: He will follow up with neurologist Dr. Escobedo at the [facility]. 08/12/18 10:47 Subjective: No complaints. Slept well. Had large orthostatic drop this morning upon arising but was not symptomatic. Took midodrine. Objective: Vital Signs Temp Pulse Resp BP Pulse Ox 36.4 C 82 16 80/52 L 93 08/12/18 07:33 08/12/18 07:33 08/12/18 07:33 08/12/18 07:33 08/12/18 07:33 Laboratory Results 08/04/18 19:45 08/11/18 08/12/18 08/13/18 05:59 05:59 05:59 Intake Total 786 810 630 Output Total 1323 1150 250 Balance -539 -340 380 Physical Exam - Physical Exam General Appearance: WD/WN, alert, no apparent distress Respiratory: No respiratory distress, No accessory muscle use Cardiac/Chest: No edema Skin: normal color, warm/dry Neuro/Psych: alert, normal mood/affect, oriented x 3, abnormal gait (Flexed posture at neck and shoulders. Short steps, step through pattern, with single- point cane and contact guard assist per Physical therapy.) ICD10 Worksheet Patient Problems: Problems Problem Status Onset Orthostatic hypotension Acute Parkinsons disease Acute
[2018-08-12] MEDS: ROSUVASTATIN CALCIUM 20 MG TAB PO SCH (20:14)
[2018-08-12] MEDS: FAMOTIDINE 20 MG TAB PO SCH (20:14)
[2018-08-13] MEDS: MIDODRINE HCL 5 MG TAB PO PRN (08:06)
[2018-08-13] MEDS: SODIUM CHLORIDE 1,000 MG TAB PO SCH (08:06)
[2018-08-13] MEDS: GLYCOPYRROLATE 1 MG TAB PO SCH (08:07)
[2018-08-13] MEDS: FLUDROCORTISONE ACETATE 0.1 MG TAB PO SCH (08:07)
[2018-08-13] MEDS: CARBIDOPA PO SCH (08:07)
[2018-08-13] MEDS: LEVODOPA PO SCH (08:07)
[2018-08-13 10:54] VITALS: BP 91/50
--- NOTE | 2018-08-13 15:33 | GDS ---
ADMISSING DIAGNOSIS: Parkinson disease with orthostatic hypotension. DISCHARGE DIAGNOSIS: Parkinson disease with orthostatic hypotension. OTHER DISCHARGE DIAGNOSES: 1. Speech therapy needs with hypophonia, dysprosody, and labial leak with drooling saliva. 2. Dyslipidemia. 3. Urinary frequency. COMPLICATIONS: There were none. PROCEDURES: There were none. CONSULTATIONS: There were none. HISTORY AND HOSPITAL COURSE: This patient was admitted from [facility]. He had presented there on 08/02/2018 with a two- week history of decreased activity tolerance due to symptomatic orthostatic hypotension interfering with his functional mobility. Evaluation in the hospital included an EKG which showed LVH and a prolonged QT interval. He had an echocardiogram which showed normal sized left ventricle, mild concentric LVH , normal global systolic LV function with an ejection fraction of 60%, no regional wall motion abnormality, grade 1 diastolic dysfunction, normal sized right ventricle, and normal RV function with a moderately dilated left atrium. He had moderate mitral valve regurgitation and mild aortic regurgitation. He was profoundly orthostatic with blood pressure drops as much as 71 mmHg on the systolic blood pressure between supine and standing. He had IV hydration with a liter of normal saline. Donepezil was discontinued. He was continued fludrocortisone, and salt tablets were added, and he was encouraged to increase his hydration. He did well in rehabilitation. His initial functional independence measure was 81 on 08/06/2018 which is consistent with assisted living level of function. He was, however, functionally variable. He had apraxia and decreased motor planning, and he was retropulsive. At first he was ambulating with contact guard assist and a front-wheeled walker. 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 His ambulation improved to the point at which he was ambulating 150 feet or greater multiple times a day with standby to contact guard assist, and he progressed to ambulating with a single-point cane. He required some assistance for lower body dressing. Regarding his orthostatic hypotension, he used thigh-high RAUL hose which helped. His bed was set in reverse Trendelenburg with the head of the bed approximately 2 inches above the foot of the bed. He had considerable supine hypertension, and midodrine was discontinued for a period of time and then resumed at 2.5 mg three times daily p.r.n. after an episode of presyncope. Subsequently, orthostatic blood pressure was checked first thing in the morning , and if his systolic blood pressure dropped below 90, the midodrine was administered. He intermittently used an abdominal binder, though he did not like it. Overall, his orthostatic symptoms were adequately controlled. Speech Therapy saw him regarding hypophonia, dysprosody, and labial leak. He had drooling. The drooling was considered to be due to parkinsonism with the characteristic reduced rate of swallowing. However, he also had left labial weakness, likely related to his history of a subdural hematoma. He received electronic stimulation to strengthen his facial muscles, and his drooling stopped. On the last two days prior to his discharge he was no longer drooling. He was continued on glycopyrrolate to reduce saliva secretion. He reported he had previously had botulinum toxin injections to his salivary glands which were also helpful. He was found to be to have cognitive impairment. The [place] Cognitive Assessment was administered, and he scored 21/30. Resuming donepezil was contraindicated as it would exacerbate urinary frequency, drooling, and orthostatic hypotension and risk for syncope. Regarding urinary frequency, this had been a chronic problem. He had no dysuria , and he had negligible postvoid residuals in the past. Bladder anticholinergics were not tried due to risk for effect on cognition. Might consider trial of mirabegron in the future, but this was not available on hospital formulary. DISCHARGE PLAN: Condition upon discharge is good. Diet is regular. Activity is ad benedict, but he needs supervision to contact guard assist for mobility related activities due to retropulsion and risk for falls. ALLERGIES: There were no new allergies. He continues to have an allergy to phenytoin. DISPOSITION: He is discharging home with his . They are currently living in an [facility] while their home in [place] is under construction. They recently moved from [place]. He and his plan to hire a caregiver to assist in his care. MEDICATIONS UPON DISCHARGE: 1. Carbidopa/levodopa extended release 23.75 mg/95 mg one p.o. twice daily. 2. Famotidine 20 mg p.o. at bedtime. 3. Fludrocortisone acetate 0.1 mg p.o. twice daily. 4. Glycopyrrolate 1 mg p.o. twice daily. 5. Midodrine 2.5 mg p.o. three times daily at 0800, 1200, and 1600 p.r.n. systolic blood pressure less than 90 in the standing position. 6. Rasagiline 1 mg p.o. daily. 7. Rosuvastatin 20 mg p.o. at bedtime. 8. Sodium chloride tablets 1000 mg p.o. twice daily. ISSUES TO BE ADDRESSED FOLLOWUP: 1. Orthostatic hypotension. He should continue monitoring his blood pressures and continue RAUL hose and medications as ordered. Keep bed in reverse Trendelenburg position with head of bed elevated 2 in above foot of bed. He was also encouraged to return to his previous exercise habit from prior to his relocation from [place] to [place]. 2. Cognitive impairment. He is advised to continue speech and language pathology after his discharge. 3. Mobility and activities of daily living. Continue PT and OT. He can follow up with his primary care provider on these issues. 4. Parkinson disease. He will follow up neurologist, Dr. Escobedo, at the [facility]. Copy requested to: Dr. Escobedo [facility] /[id number]/MODL MTDD
--- NOTE | 2018-08-18 11:49 | PDOREHIP ---
Admission [facility] - Admission - 3 Day Assessment Period Admission Date/Day 1: 08/04/18 Day 2: 08/05/18 Day 3: 08/06/18 - Active Diagnoses Comorbidities and Co-existing Conditions at Admission: 62838. None of the Above Discharge [facility] - Discharge - 3 Day Assessment Period 2 Days Prior to Anticipated Discharge Date: 08/11/18 1 Day Prior to Anticipated Discharge Date: 08/12/18 Anticipated Discharge Date: 08/13/18 - Discharge Skin Conditions Unhealed Pressure Ulcer (1 or more/Stage 1 or >)-Discharge: 0. No # Stage 1 Pressure Ulcers-Discharge: 0 # Stage 2 Pressure Ulcers-Discharge: 0 # of These Stage 2 Pressure Ulcers Present on Admission: 0 # Stage 3 Pressure Ulcers-Discharge: 0 # of These Stage 3 Pressure Ulcers Present on Admission: 0 # Stage 4 Pressure Ulcers-Discharge: 0 # of These Stage 4 Pressure Ulcers Present on Admission: 0 # Unstageable Pressure Ulcers (Non-remove Dress)-Discharge: 0 # These Unstageable Pressure Ulcers (NRD)-Present on Admit: 0 # Unstageable Pressure Ulcers (Slough/Eschar)-Discharge: 0 # These Unstageable Pressure Ulcers(Slough) Present on Admit: 0 # Unstageable Pressure Ulcers (Deep Tissue Injury)-Discharge: 0 # These Unstageable Pressure Ulcers (DTI) Present on Admit: 0
== END 2018-08-13 13:04 | disposition home or self-care (01) | DRG 57 ==
LOC: BREH 15:52
PROVIDERS: ADMIT Internal Medicine Hospice and Palliative Medicine; ATTEND Internal Medicine Hospice and Palliative Medicine
PROC: F08Z1FZ Dressing Techniques Treatment using Assistive, Adaptive, Supportive or Protective Equipment (ICD-10-PCS; principal; 2018-08-04)
PROC: F08Z2FZ Grooming/Personal Hygiene Treatment using Assistive, Adaptive, Supportive or Protective Equipment (ICD-10-PCS; principal; 2018-08-04)
PROC: F07Z8FZ Transfer Training Treatment using Assistive, Adaptive, Supportive or Protective Equipment (ICD-10-PCS; principal; 2018-08-04)
PROC: F07Z5FZ Bed Mobility Treatment using Assistive, Adaptive, Supportive or Protective Equipment (ICD-10-PCS; principal; 2018-08-04)
PROC: F06Z1ZZ Speech-Language Pathology and Related Disorders Counseling Treatment (ICD-10-PCS; principal; 2018-08-04)
DX: G90.3 Multi-system degeneration of the autonomic nervous system (principal); N31.9 Neuromuscular dysfunction of bladder, unspecified; J38.3 Other diseases of vocal cords; G31.84 Mild cognitive impairment of uncertain or unknown etiology; E78.5 Hyperlipidemia, unspecified; I51.89 Other ill-defined heart diseases; R35.0 Frequency of micturition; Z87.820 Personal history of traumatic brain injury
CPT/HCPCS: 92507-GN; 92523-GN; 92526-GN; 92610-GN; 97110-GP; 97112-GP; 97116-GP; 97162-GP; 97166-GO; 97530-GO; 97530-GP; 97535-GO

== ENCOUNTER → 2018-11-15 | Outpatient (CLI) | payer OTHER, MEDICARE | LOC: FIMAGING 13:24 | PROVIDERS: ATTEND Internal Medicine Rheumatology | DX: M81.0 Age-related osteoporosis without current pathological fracture (principal) ==